=== PATIENT | male | born 1995 | race Caucasian/White ===

== ENCOUNTER 2022-05-21 14:40 | Inpatient (IN) | payer BC, SELFPAY ==
--- NOTE | ~2022-05-21 | CT_ITS ---
EXAMINATION: CT abdomen pelvis w con DATE: 05/21/2022 16:32 INDICATION: Abdominal pain and jaundice TECHNIQUE: Computed tomography (CT) of the abdomen and pelvis was performed with 100 mL Omnipaque-350 intravenous contrast. Automated exposure control and iterative reconstruction technique were employe d. The dose-length product was 1699.62 mGy-cm. COMPARISON: None FINDINGS: 8 mm calcite nodules lingula consistent with old granulomatous disease. Mild discoid atelectasis at t he right lung base. Heart size is normal. No pericardial or pleural effusion. Diffuse hepatic steatos is. Suggestion of a subtle nodular liver surface suspicious for cirrhosis. Splenomegaly measuring 17. 7 cm craniocaudal length consistent with portal venous hypertension. Also consistent with portal veno us hypertension are prominent portosystemic collaterals including a large recanalized umbilical vein which appears to drain via the right hypogastric vein and splenic collateral extending into a moderat e-sized fat-containing umbilical hernia containing multiple small collateral vessels. Small to modera te amount of ascites scattered throughout the abdomen and pelvis. No abscess or free intraperitoneal gas. Decompressed bladder, pancreas, bilateral adrenal glands and kidneys are normal. Bladder is norm al. Diffuse colonic wall thickening which could be related to hepatic colopathy or colitis either inf ectious, inflammatory or less likely ischemic in etiology. No bowel obstruction. Appendix is normal. Likely reactive mild periportal and portacaval lymphadenopathy. Bones are unremarkable. IMPRESSION: 1. Cirrhosis with small to moderate amount of ascites. 2. Stigmata of portal venous hypertension including splenomegaly and portosystemic collaterals as det maurice above. 3. Moderate-sized fat-containing umbilical hernia. 4. Diffuse colonic wall thickening which could be related to hepatic colopathy or colitis which could be infectious, inflammatory or less likely ischemic in etiology. 0.5. Likely reactive mild periporta l and portacaval lymphadenopathy. Reviewed, dictated and finalized at location [facility]. IMPRESSION: 1. Cirrhosis with small to moderate amount of ascites. 2. Stigmata of portal venous hypertension including splenomegaly and portosyste shaniqua collaterals as detailed above. 3. Moderate-sized fat-containing umbilical hernia. 4. Diffuse colonic wall thickening which could be related to hepatic colopathy or colitis which could be infectious, inflammatory or less likely ischemic in e tiology. 0.5. Likely reactive mild periportal and portacaval lymphadenopathy.
[2022-05-21 14:49] VITALS: BP 149/93; PULSE 108; RESP 20; TEMP 36.7; O2SAT 98
--- NOTE | 2022-05-21 15:23 | ED.ALCOHOL ---
HPI - Alcohol General Chief Complaint: Alcohol <Reyes Mitchell APRN - Last Filed: 05/22/22 09:45> Stated Complaint: alcoholic - stopped drinking 2 days ago, pints <Reyes Mitchell APRN - Last Filed: 05/22/22 09:45> Time Seen by Provider: 05/21/22 15:03 <Reyes Mitchell APRN - Last Filed: 05/22/22 09:45> History of Present Illness HPI narrative: 27-year-old male history of heavy alcohol abuse presents to the emergency room for evaluation of abdominal pain and requesting to be detox from alcohol. Patient admits to drinking 750mL from daily for several months. Also reports having like having yellowing of his skin that has been present for the last 2 months. Reports being seen at an outside emergency room 1 month ago for similar symptoms, was discharged home. Patient has a significant drinking history, and has experienced jaundice before. 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 States that he fell off the wagon several months ago and has been drinking heavily since. <Reyes Mitchell APRN - Last Filed: 05/22/22 09:45> Related Data Allergies/Adverse Reactions: Allergies Allergy/AdvReac Type Severity Reaction Status Date / Time No Known Allergies Allergy Verified 05/21/22 14:52 <Reyes Mitchell APRN - Last Filed: 05/22/22 09:45> Review of Systems Review of Systems: CONSTITUTIONAL: Denies fever, chills, or sweats. EYES: Denies visual changes, redness, or discharge. ENT: Denies rhinorrhea, congestion, sore throat, or otalgia. CARDIOVASCULAR: Denies chest pain, palpitations, or edema. RESPIRATORY: Denies cough or dyspnea. GASTROINTESTINAL: Reports abdominal pain, nausea, diarrhea GENITOURINARY: Denies dysuria or hematuria. SKIN: Reports jaundice, easily bruises MUSCULOSKELETAL: Denies back pain, joint pain, or myalgia. NEUROLOGIC: Denies headache, numbness, dizziness, or weakness. PSYCHIATRIC: Denies anxiety or depression. <Reyes Mitchell APRN - Last Filed: 05/22/22 09:45> Exam Narrative: GENERAL: ill-appearing, poorly-nourished, no physical limitations HEAD: Normocephalic, atraumatic. EYES: Conjunctivae jaundiced, PERRLA and EOMI. CHEST: Clear to auscultation. No respiratory distress. No wheezes rales or rhonchi. No tenderness. HEART: Regular rate and rhythm. No murmur heard. Normal peripheral pulses. ABDOMEN: Soft, generalized tenderness, nondistended, periumbilical hernia, normal active bowel sounds. BACK: No CVA tenderness EXTREMITIES: Normal range of motion. No edema. No clubbing or cyanosis SKIN: Warm, dry, no rash. Jaundiced NEURO: No focal deficits. Alert and oriented x3. MAEW. CN's II-XI intact bilaterally, normal gait PSYCH: Cooperative. Normal mood and affect. <Reyes Mitchell APRN - Last Filed: 05/22/22 09:45> Course Course Emergency Course: 1814: Patient has been accepted to the GI service at [facility]. GI service at [facility] recommends fluid replacement, managing withdrawal symptoms, replacing electrolyte imbalances, and daily 40mg prednisone or its equivalent. 1899: Report inpatient status given to Dr. Cade. <Reyes Mitchell APRN - Last Filed: 05/22/22 09:45> 181: Patient has been accepted to the GI service at [facility]. GI service at [facility] recommends fluid replacement, managing withdrawal symptoms, replacing electrolyte imbalances, and daily 40mg prednisone or its equivalent. 1899: Report inpatient status given to Dr. Cade. Care turned over to myself at shift change seen evaluate myself agree with initial H&P Contacted [facility] patient still awaiting bed do not believe any beds available today will admit at our facility Repeat labs drawn electrolytes replaced Discussed with Dr. Triana agrees with admission at this time <Andre Jarvis DO - Last Filed: 05/22/22 10:10> Vital Signs Vital signs: Vital Signs Temperature 98.0 F 05/21/22 14:49 Pulse Rate 108 H
[2022-05-21 15:24] VITALS: BP 151/89; PULSE 100; RESP 12; O2SAT 100
[2022-05-21 15:46] LABS: Basophils Percent Auto 0.4 % (0.2-1.2); Eosinophils Absolute Auto 0.1 K/mm3 (0-0.3); Eosinophils Percent Auto 0.7 % (0-4.4); Hematocrit 32.1 % (42.0-52.0); Hemoglobin 11.3 g/dL (14.0-18.0); Immature Granulocyte Absolute 0.04 K/mm3 (0.00-0.031); Immature Granulocyte Percent A 0.4 % (0-0.5); Lymphocytes Absolute Auto 0.94 K/mm3 (0.9-3.2); Lymphocytes Percent Auto 10.2 % (18.3-44.2); Mean Corpuscular HGB Conc 35.2 g/dl (32-36); Mean Corpuscular Volume 99.4 fl (80-100); Mean Platelet Volume 12.1 fl (7.4-10.4); Monocytes Absolute Auto 0.6 K/mm3 (0.1-0.6); Monocytes Percent Auto 6.1 % (2.6-8.5); Neutrophils Absolute Auto 7.5 K/mm3 (1.3-6.7); Neutrophils Percent Auto 82.2 % (45.5-73.1); Platelet Count Result 120 k/mm3 (150-375); Red Blood Count 3.23 M/mm3 (4.6-6.20); Red Cell Distribution Width 13.3 % (11.5-14.5); White Blood Count 9.2 K/mm3 (4.5-10.0)
[2022-05-21] MEDS: SODIUM CHLORIDE 0.9% IV 1,000 ML 999 ML IV CONT (15:47)
[2022-05-21] MEDS: ONDANSETRON INJ 4 MG/2 ML VIAL IV PUSH ×2 (15:47→19:36)
[2022-05-21 15:53] LABS: INR 2.7; Prothrombin Time 27.8 Seconds (11.1-14.7)
[2022-05-21 15:54] LABS: Add Urine Microscopic? YES; Appearance Urine Slightly Cloudy (Clear); Bilirubin Urine 3+ (Negative); Blood Urine Trace-lysed (Negative); Color Urine Brown (Yellow); Glucose Urine UA Trace mg/dL (Negative); Ketones Urine 1+ mg/dL (Negative); Leukocyte Esterase Ur 3+ LEU/UL (Negative); Nitrate Urine Negative (Negative); Protein Urine 2+ mg/dL (Negative); Specific Grav Ur 1.025 (1.001-1.035)
[2022-05-21 15:55] LABS: Partial Thromboplastin Time 46.7 SECONDS (22.3-36.8)
[2022-05-21 15:59] LABS: Bacteria Urine 2+ /hpf; Mucus Urine Heavy /lpf
[2022-05-21 16:00] LABS: Ethanol < 10 mg/dL (<10)
[2022-05-21 16:02] LABS: Lactic Acid Reflex 3.7 mmol/L (0.7-2.0)
[2022-05-21 16:03] LABS: Iron 132 ug/dL (49-181)
[2022-05-21 16:04] LABS: Cholesterol 118 mg/dL (0-200); HDL Direct 8 mg/dL; Triglycerides 386 mg/dL (<150)
[2022-05-21 16:07] LABS: Alanine Aminotransferase 69 U/L (6-50); Albumin Level 3.1 g/dL (3.5-5.1); Alkaline Phosphatase 404 U/L (38-126); Anion Gap 14 mmol/L (8-16); Aspartate Amino Transferase 482 U/L (17-59); Bilirubin,Total 17.7 mg/dL (0.2-1.3); Blood Urea Nitrogen 5 mg/dL (9-20); Calcium 7.4 mg/dL (8.4-10.2); Carbon Dioxide 27 mmol/L (22-30); Chloride 95 mmol/L (98-107); Estimated CRCL calculation 241 ml/min; Estimated Glomerular Filt Rate > 60; Glucose 89 mg/dL (65-110); Potassium 2.5 mmol/L (3.4-5.0); Sodium 136 mmol/L (137-145)
[2022-05-21 16:09] LABS: Lactate Dehydrogenase 466 U/L (120-246)
[2022-05-21 16:12] LABS: Percent Iron Saturation 78 % (20-50)
[2022-05-21 16:14] LABS: Hemoglobin A1C 4.2 % (<5.7)
[2022-05-21 16:15] LABS: LDL Cholesterol Direct 56 mg/dL
[2022-05-21 16:37] LABS: Hepatitis B Surface Antigen Negative (Negative)
[2022-05-21 16:43] LABS: HAV RESULT Negative (Negative); Hepatitis B Core IgM Result Negative (Negative)
[2022-05-21 16:55] LABS: Hepatitis C Virus Antibody Negative (Negative)
[2022-05-21] MEDS: POTASSIUM CHLORIDE INJ 40 MEQ in SODIUM CHLORIDE 0.9% IV 500 ML 130 MEQ IVPB ×2 (16:55→21:18)
[2022-05-21] MEDS: SODIUM CHLORIDE 0.9% IV 500 ML 125 ML IV CONT (16:55)
[2022-05-21 17:07] LABS: Magnesium 1.4 mg/dL (1.6-2.3)
[2022-05-21 18:28] LABS: Ammonia 156 umol/L (9-30)
[2022-05-21 18:34] LABS: SARS-CoV-2 RNA PCR Negative
--- NOTE | 2022-05-21 18:35 | PC.NURSE ---
Spoke w/ Shaniqua from [facility] transfer center. Updated on pt condition. Shaniqua reports that the pt will not have a bed for days
[2022-05-21 18:40] LABS: Reflex Lactic Acid Yes or No Add Lactic
[2022-05-21 19:20] LABS: Lactic Acid 3.2 mmol/L (0.7-2.0)
[2022-05-21] MEDS: LACTULOSE 20 GM/30 ML UDC PO (19:36)
[2022-05-21] MEDS: PANTOPRAZOLE SODIUM IV 40 MG VIAL IV PUSH (19:36)
[2022-05-21 19:47] VITALS: BP 147/88; PULSE 100; RESP 18; O2SAT 98
[2022-05-21 23:09] VITALS: BP 160/96; PULSE 87; RESP 18; O2SAT 97
[2022-05-22] VITALS (14 sets, daily range): BP systolic 147–158; BP diastolic 89–100; PULSE 84–122; RESP 14–22; TEMP 36.4–37; O2SAT 95–99; BMI 34.2; BMI 37.3
[2022-05-22 02:07] LABS: Amphetamine Screen Urine Negative (Negative); Barbiturate Screen Urine Negative (Negative); Benzodiazepines Screen Urine Negative (Negative); Cannabinoid Screen Urine Negative (Negative); Cocaine Screen Urine Negative (Negative); Methadone Screen Urine Negative (Negative); Opiate Screen Urine Negative (Negative); Phencyclidine Screen Urine Negative (Negative)
--- NOTE | 2022-05-22 07:15 | PC.NURSE ---
Assumed care of Pt. at this time. Report from JUDY Dorsey
--- NOTE | 2022-05-22 07:42 | PC.NURSE ---
previous RN called [facility] this am. pt. does not have a bed. will follow up.
[2022-05-22 09:23] LABS: Alanine Aminotransferase 66 U/L (6-50); Albumin Level 2.5 g/dL (3.5-5.1); Alkaline Phosphatase 342 U/L (38-126); Anion Gap 8 mmol/L (8-16); Aspartate Amino Transferase 378 U/L (17-59); Bilirubin,Total 15.2 mg/dL (0.2-1.3); Blood Urea Nitrogen 6 mg/dL (9-20); Calcium 6.9 mg/dL (8.4-10.2); Carbon Dioxide 27 mmol/L (22-30); Chloride 100 mmol/L (98-107); Estimated CRCL calculation 205 ml/min; Estimated Glomerular Filt Rate > 60; Glucose 112 mg/dL (65-110); Magnesium 1.5 mg/dL (1.6-2.3); Potassium 2.7 mmol/L (3.4-5.0); Sodium 135 mmol/L (137-145)
[2022-05-22] MEDS: POTASSIUM CHLORIDE 20 MEQ PACKET (FOR LIQUID) 40 MEQ PO (09:49)
[2022-05-22] MEDS: MAGNESIUM SULF 2 GM/WATER 50ML 2 GM/50 ML BAG IVPB (09:50)
[2022-05-22] MEDS: THIAMINE HCL 200 MG/2 ML VIAL 100 MG IV PUSH (09:50)
--- NOTE | 2022-05-22 12:00 | ADMGEN ---
This patient, Jonh Cronin, was admitted to IMU Room 231-01. Patient/family oriented to hospital policies and general routines including ID bracelet, bed and alarms, visiting hours, pain management, procedures, bathroom and other care routines, personal items, smoking policy, room service/diet, and visiting hours. Information on how to activate the Rapid Response Team has been discussed. Patient/Family are encouraged to report perceived risks to care and to ask questions if they do not understand what they are told or what they should do.
--- NOTE | 2022-05-22 12:38 | PM.IMHP ---
H&P: HPI History of Present Illness Date/Time: 05/22/22 12:38 Chief Complaint: This is the 27-year-old male patient who has a history of heavy alcohol abuse. The patient had been sober for several months and stated his shoeblack told him that he was doing well so the patient fell off the wagon and has been drinking at least 750 mL of alcohol or beer daily for the last several months. The patient came to the emergency room today because he noticed his skin has been jaundiced for the last 2 months he also had abdominal pain today. The patient stated that he went to an outside emergency room 1 month ago for similar symptoms and was discharged to home. The patient has not seen his shoeblack in several months. He sees a shoeblack at [facility]. The ER provider noted the following ?Patient has been accepted to the GI service at [facility].? GI service at [facility] recommends fluid replacement, managing withdrawal symptoms, replacing electrolyte imbalances, and daily 40mg prednisone or its equivalent. His blood pressure was elevated yesterday 149/93. And tachycardia with heart rate of 108. Patient's current meld scores a [address] scan shows cirrhosis mild to moderate amount of ascites and portal hypertension. Patient is to be transferred to [facility] due to D compensating liver failure GI services at [facility] will accept him however there would be a long wait due to the Valium at their facility. The patient tells me that he has been spitting up some blood and that he has had some dark stools as well. His H&H is 11.3 and 32.1. Platelet count 120. Potassium this morning was still 2.7. Magnesium was 1.5. Total bilirubin 15.2. AST is 378. ALT 66. Alkaline phosphatase 342. Ammonia was 156. Urine was positive for UTI. Patient was negative for COVID and is tox screen was negative. The patient was given IV fluids, p.o. potassium, IV potassium, Decadron, Zofran, magnesium, and thiamin. Patient is being admitted to observation status on the date of service of 05/22/2022 awaiting a bed for [facility]. Review of Systems Review of Systems: See HPI All systems reviewed & are unremarkable except as noted in HPI and below Constitutional: Constitutional: Reports as per HPI and Reports no additional constitutional complaints Eyes: Eyes: Reports as per HPI and Reports no additional eye complaints ENT: Reports system reviewed and no additional complaints, except as documented and Reports Normal hearing present Cardiovascular: Cardiovascular: Reports no additional cardiovascular complaints Respiratory: Respiratory: Reports no additional respiratory complaints and Reports no additional respiratory complaints Gastrointestinal: Gastrointestinal: Reports as per HPI and Reports no additional gastrointestinal complaints Musculoskeletal: Musculoskeletal: Reports no additional musculoskeletal complaints Integumentary/Breasts: Skin/Breast: Reports system reviewed and no additional complaints, except as docu and Reports as per HPI Neurologic: Reports system reviewed and no additional complaints, except as documented, Reports as per HPI and Reports Normal hearing present Psychiatric: Psychiatric: Reports no additional psychiatric complaints and Reports as per HPI Endocrine: Endocrine: Reports no additional endocrine complaints Hematologic/Lymphatic: Hematologic/Lymphatic: Reports no additional hematologic/lymphatic complaints Allergic/Immunologic: Allergic/Immunologic: Reports no additional allergic/immunologic complaints [facility] Past Medical History Medical History Alcohol abuse Surgical History Surgical History (Updated 05/22/22 @ 12:51 by Mami Mueller NP) History of surgery on upper extremity Family History Family History (Updated 05/22/22 @ 12:52 by Mami Mueller NP) Mother Alcoholism Sibling Anorexia Sibling Mental disorder Social History Social History (Updated 05/22/22 @ 12:54 by Mami Mueller NP) Social History: The patient live
[2022-05-22] MEDS: SODIUM CHLORIDE 0.9% IV 1,000 ML 125 ML IV CONT ×2 (12:47→20:46)
[2022-05-22 14:21] LABS: Basophils Percent Auto 0.1 % (0.2-1.2); Hematocrit 30.4 % (42.0-52.0); Hemoglobin 10.6 g/dL (14.0-18.0); Immature Granulocyte Absolute 0.06 K/mm3 (0.00-0.031); Immature Granulocyte Percent A 0.6 % (0-0.5); Immature Platelet Fraction Pct 6.2 % (0.9-11.2); Lymphocytes Absolute Auto 0.64 K/mm3 (0.9-3.2); Mean Corpuscular HGB Conc 34.9 g/dl (32-36); Mean Corpuscular Hemoglobin 35.9 pg (26-34); Mean Corpuscular Volume 103.1 fl (80-100); Mean Platelet Volume 11.1 fl (7.4-10.4); Monocytes Absolute Auto 0.4 K/mm3 (0.1-0.6); Monocytes Percent Auto 3.8 % (2.6-8.5); Neutrophils Absolute Auto 9.6 K/mm3 (1.3-6.7); Neutrophils Percent Auto 89.5 % (45.5-73.1); Platelet Count Result 88 k/mm3 (150-375); Red Blood Count 2.95 M/mm3 (4.6-6.20); Red Cell Distribution Width 13.8 % (11.5-14.5); White Blood Count 10.7 K/mm3 (4.5-10.0)
[2022-05-22 14:32] LABS: Ammonia 82 umol/L (9-30)
[2022-05-22 14:37] LABS: INR 3.1; Prothrombin Time 30.6 Seconds (11.1-14.7)
[2022-05-22 14:38] LABS: Alanine Aminotransferase 65 U/L (6-50); Albumin Level 2.8 g/dL (3.5-5.1); Alkaline Phosphatase 357 U/L (38-126); Anion Gap 12 mmol/L (8-16); Aspartate Amino Transferase 378 U/L (17-59); Bilirubin,Total 17.4 mg/dL (0.2-1.3); Blood Urea Nitrogen 6 mg/dL (9-20); Calcium 7.2 mg/dL (8.4-10.2); Carbon Dioxide 27 mmol/L (22-30); Chloride 100 mmol/L (98-107); Estimated CRCL calculation 217 ml/min; Estimated Glomerular Filt Rate > 60; Glucose 138 mg/dL (65-110); Phosphorus 1.6 mg/dL (2.5-4.5); Potassium 2.7 mmol/L (3.4-5.0); Sodium 139 mmol/L (137-145)
[2022-05-22 14:39] LABS: Platelet Estimate Decreased (Adequate)
[2022-05-22 14:40] LABS: Ovalocytes 1+ (NORMAL); Schistocytes None Seen (NORMAL); Target Cells 1+ (NORMAL)
[2022-05-22] MEDS: POTASSIUM CHLORIDE INJ 40 MEQ in SODIUM CHLORIDE 0.9% IV 500 ML 130 MEQ IVPB (16:04)
[2022-05-22] MEDS: POTASSIUM CHLORIDE 20 MEQ TABLET.ER 40 MEQ PO (16:16)
[2022-05-22] MEDS: chlordiazePOXIDE (*CRX) 25 MG CAPSULE 50 MG PO ×2 (17:38→23:43)
[2022-05-22 17:59] LABS: Glucose Point of Care 121 mg/dl (65-105)
[2022-05-22 19:41] LABS: Hematocrit 31.1 % (42.0-52.0); Hemoglobin 10.6 g/dL (14.0-18.0)
[2022-05-22] MEDS: PANTOPRAZOLE SODIUM IV 40 MG VIAL IV PUSH (20:43)
[2022-05-22 23:34] LABS: Glucose Point of Care 170 mg/dl (65-105)
[2022-05-23] VITALS (16 sets, daily range): BP systolic 133–163; BP diastolic 81–95; PULSE 71–100; RESP 17–97; TEMP 36–36.8; O2SAT 20–100; BMI 37.2
[2022-05-23 05:09] LABS: Alanine Aminotransferase 59 U/L (6-50); Albumin Level 2.4 g/dL (3.5-5.1); Alkaline Phosphatase 273 U/L (38-126); Anion Gap 6 mmol/L (8-16); Aspartate Amino Transferase 271 U/L (17-59); Bilirubin,Total 15.4 mg/dL (0.2-1.3); Blood Urea Nitrogen 8 mg/dL (9-20); Calcium 6.7 mg/dL (8.4-10.2); Carbon Dioxide 23 mmol/L (22-30); Chloride 106 mmol/L (98-107); Estimated CRCL calculation 216 ml/min; Estimated Glomerular Filt Rate > 60; Glucose 160 mg/dL (65-110); Potassium 3.6 mmol/L (3.4-5.0); Sodium 135 mmol/L (137-145)
--- NOTE | 2022-05-23 05:31 | PC.NURSE ---
I HAVE MONITORED THE MEDICATION DISPENSING AND THE CHARTING FOR THIS PATIENT AND I AGREE WITH EVERYTHING THAT DELVIN MANNING RN LICENCE PENDING HAS CHARTED.
[2022-05-23] MEDS: chlordiazePOXIDE (*CRX) 25 MG CAPSULE 50 MG PO ×4 (05:33→23:54)
[2022-05-23] MEDS: SODIUM CHLORIDE 0.9% IV 1,000 ML 125 ML IV CONT ×2 (05:33→13:16)
[2022-05-23 07:21] LABS: Hematocrit 29.4 % (42.0-52.0); Hemoglobin 10.1 g/dL (14.0-18.0); Immature Platelet Fraction Pct 5.9 % (0.9-11.2); Mean Corpuscular HGB Conc 34.4 g/dl (32-36); Mean Corpuscular Hemoglobin 35.8 pg (26-34); Mean Corpuscular Volume 104.3 fl (80-100); Platelet Count Result 82 k/mm3 (150-375); Red Blood Count 2.82 M/mm3 (4.6-6.20); Red Cell Distribution Width 14.1 % (11.5-14.5); White Blood Count 8.3 K/mm3 (4.5-10.0)
--- NOTE | 2022-05-23 07:33 | PM.IMPN ---
Progress Note: A&P Assessment and Plan (1) Alcohol abuse: Code(s): F10.10 - Alcohol abuse, uncomplicated Status: Acute Assessment and Plan: Continue CIWA scores with Librium as needed (2) Acute liver failure: Code(s): K72.00 - Acute and subacute hepatic failure without coma Status: Acute Assessment and Plan: Awaiting transfer for hepatology at [facility] (3) Hypomagnesemia: Code(s): E83.42 - Hypomagnesemia Status: Acute Assessment and Plan: Stable (4) Acute UTI: Code(s): N39.0 - Urinary tract infection, site not specified Status: Acute Assessment and Plan: Continue Rocephin, follow up urine culture (5) Acute hypokalemia: Code(s): E87.6 - Hypokalemia Status: Acute Assessment and Plan: Resolved (6) Thrombocytopenia: Code(s): D69.6 - Thrombocytopenia, unspecified Status: Acute Assessment and Plan: Stable Plan DVT prophylaxis with SCDs GI prophylaxis with PPI Code status full code Subjective Date/time seen: 05/23/22 07:33 Interval history: Patient is eager to go home. No overnight events noted. No chest pain or shortness of breath. No nausea, vomiting or diarrhea. No fevers or chills. Review of Systems Review of Systems: 12 point review of systems was assessed and was negative except as noted in the HPI Exam Narrative: General: No acute distress, alert and oriented per baseline HEENT: Atraumatic, normocephalic, mucous membranes moist, bilateral icteric sclera CV: Regular rate and rhythm, S1, S2 Lungs: Clear to auscultation bilaterally, no rales or crackles noted, no wheezes, good air entry Abdomen: Soft, nontender, distended Extremities: Normal to inspection, significant edema bilaterally Skin: No rashes noted, no lesions or wounds seen Psych: Euthymic, normal affect Objective Data Vital Signs Vital Signs: Vital Signs - 24 hr 05/22/22 09:28 05/22/22 10:27 05/22/22 11:54 Temperature 98.6 F 98.4 F Pulse Rate 86 88 96 Respiratory Rate 14 19 22 H Blood Pressure 152/95 H 155/89 H 147/97 H Pulse Oximetry 96 97 99 Oxygen Delivery 05/22/22 12:00 05/22/22 12:00 05/22/22 14:00 Temperature Pulse Rate 102 H 92 Respiratory Rate Blood Pressure Pulse Oximetry Oxygen Delivery Room Air 05/22/22 16:24 05/22/22 16:00 05/22/22 16:00 Temperature 97.6 F Pulse Rate 95 122 H Respiratory Rate 20 Blood Pressure 149/95 H Pulse Oximetry 98 Oxygen Delivery Room Air 05/22/22 18:00 05/22/22 20:00 05/22/22 20:00 Temperature 97.9 F Pulse Rate 100 95 93 Respiratory Rate 20 Blood Pressure 151/93 H Pulse Oximetry 96 Oxygen Delivery 05/22/22 22:00 05/22/22 23:31 05/23/22 00:00 Temperature 98.0 F Pulse Rate 84 113 H 100 Respiratory Rate 20 Blood Pressure 153/94 H Pulse Oximetry 99 Oxygen Delivery 05/23/22 02:00 05/23/22 03:50 05/23/22 04:00 Temperature Pulse Rate 78 77 Respiratory Rate Blood Pressure Pulse Oximetry Oxygen Delivery Room Air 05/23/22 04:00 05/23/22 05:21 Temperature 98.0 F Pulse Rate 90 75 Respiratory Rate 18 Blood Pressure 133/81 Pulse Oximetry 98 Oxygen Delivery Intake/Output Intake/Output: Intake & Output 05/20/22 05/21/22 05/22/22 05/23/22 23:59 23:59 23:59 23:59 Intake Total 2019 2199 1800 Output Total Balance 2019 2198 1800 Meds/Results Medications: Active Medications Generic Name Dose Route Start Last Admin Trade Name Freq PRN Reason Stop Dose Admin Chlordiazepoxide HCl 50 mg 05/22/22 18:00 05/23/22 05:33 Chlordiazepoxide (*Crx) 25 Mg Capsule PO 50 mg Q6HR IQRA Administration Folic Acid 1 mg 05/23/22 09:00 Folic Acid 1 Mg/0.2 Ml Inj IV PUSH QAM IQRA Ceftriaxone Sodium/Dextrose 1 gm in 50 mls @ 100 mls/hr 05/22/22 21:00 05/22/22 20:43 Rocephin 1 Gm/D5w 50 Ml IVPB 100 mls/hr Q24H IQRA Administration S
[2022-05-23 07:59] LABS: Platelet Estimate Decreased (Adequate)
[2022-05-23 08:00] LABS: Band Neutrophils Percent 6 % (0-6); Lymphocytes Absolute Manual 0.41 K/mm3 (1.1-4.5); Lymphocytes Percent Manual 5 % (18-44); Monocytes Absolute Manual 0.08 K/mm3 (0.1-0.90); Monocytes Percent Manual 1 % (3-9); Neutrophils Percent Manual 88 % (46-73); Schistocytes None Seen (NORMAL); Total Cells Counted 100
[2022-05-23] MEDS: POTASSIUM CHLORIDE 20 MEQ TABLET.ER 40 MEQ PO ×2 (08:25→16:45)
[2022-05-23] MEDS: FOLIC ACID 1 MG/0.2 ML INJ IV PUSH (08:25)
[2022-05-23] MEDS: predniSONE 20 MG TABLET 40 MG PO (08:25)
[2022-05-23] MEDS: PANTOPRAZOLE SODIUM IV 40 MG VIAL IV PUSH ×2 (08:25→21:44)
[2022-05-23] MEDS: THIAMINE HCL 200 MG/2 ML VIAL 100 MG IV PUSH (08:25)
[2022-05-23 11:50] LABS: Glucose Point of Care 215 mg/dl (65-105)
--- NOTE | 2022-05-23 14:11 | PC.NURSE ---
On 05/23/22, the student, [Mily Evans], provided care and completed [facility] documentation on this patient. I have reviewed the student's documentation and agree with the findings.
[2022-05-23 18:03] LABS: Glucose Point of Care 167 mg/dl (65-105)
[2022-05-23 23:03] LABS: Glucose Point of Care 212 mg/dl (65-105)
[2022-05-24] VITALS (7 sets, daily range): BP systolic 144–154; BP diastolic 72–94; PULSE 62–105; RESP 16–20; TEMP 36.1–36.6; O2SAT 91–99
--- NOTE | 2022-05-24 00:10 | PC.NURSE ---
[facility] placement called at 23:25 for an update. No bed placement available.
--- NOTE | 2022-05-24 05:49 | PC.NURSE ---
I HAVE MONITORED THE MEDICATION DISPENSING AND CHARTING DONE BY DELVIN MANNING RN LICENSE PENDING AND I AGREE WITH EVERYTHING.
[2022-05-24] MEDS: chlordiazePOXIDE (*CRX) 25 MG CAPSULE 50 MG PO (05:54)
[2022-05-24] MEDS: THIAMINE HCL 200 MG/2 ML VIAL 100 MG IV PUSH (08:46)
[2022-05-24] MEDS: FOLIC ACID 1 MG/0.2 ML INJ IV PUSH (08:46)
[2022-05-24] MEDS: PANTOPRAZOLE SODIUM IV 40 MG VIAL IV PUSH (08:46)
[2022-05-24] MEDS: ONDANSETRON INJ 4 MG/2 ML VIAL IV PUSH (08:47)
[2022-05-24 11:31] LABS: Basophils Absolute Auto 0.1 K/mm3 (0.0-0.1); Basophils Percent Auto 0.3 % (0.2-1.2); Eosinophils Percent Auto 0.1 % (0-4.4); Hematocrit 35.5 % (42.0-52.0); Immature Granulocyte Absolute 0.54 K/mm3 (0.00-0.031); Immature Granulocyte Percent A 2.5 % (0-0.5); Lymphocytes Absolute Auto 0.96 K/mm3 (0.9-3.2); Lymphocytes Percent Auto 4.5 % (18.3-44.2); Mean Corpuscular HGB Conc 33.8 g/dl (32-36); Mean Corpuscular Hemoglobin 35.5 pg (26-34); Mean Platelet Volume 11.2 fl (7.4-10.4); Monocytes Absolute Auto 1.5 K/mm3 (0.1-0.6); Monocytes Percent Auto 6.7 % (2.6-8.5); Neutrophils Absolute Auto 18.5 K/mm3 (1.3-6.7); Neutrophils Percent Auto 85.9 % (45.5-73.1); Platelet Count Result 138 k/mm3 (150-375); Red Blood Count 3.38 M/mm3 (4.6-6.20); White Blood Count 21.5 K/mm3 (4.5-10.0)
[2022-05-24 11:41] LABS: Ammonia 117 umol/L (9-30)
[2022-05-24 11:45] LABS: Alanine Aminotransferase 73 U/L (6-50); Albumin Level 2.9 g/dL (3.5-5.1); Alkaline Phosphatase 347 U/L (38-126); Anion Gap 9 mmol/L (8-16); Aspartate Amino Transferase 243 U/L (17-59); Bilirubin,Total 20.4 mg/dL (0.2-1.3); Blood Urea Nitrogen 10 mg/dL (9-20); Calcium 7.8 mg/dL (8.4-10.2); Carbon Dioxide 20 mmol/L (22-30); Chloride 109 mmol/L (98-107); Estimated CRCL calculation 216 ml/min; Estimated Glomerular Filt Rate > 60; Glucose 158 mg/dL (65-110); Potassium 2.8 mmol/L (3.4-5.0); Sodium 138 mmol/L (137-145)
--- NOTE | 2022-05-24 12:53 | PM.TDS ---
Transfer Discharge Sum: Prov Provider Date of admission: 05/23/22 12:07 Primary care physician: UNKNOWN,DOCTOR Admitting clinician: Leah Triana DO Consults: 05/22/22 12:47 Care Coordination Consult Routine Comment: Reason for Consult:: Other 05/22/22 12:48 Consult to Dietitian Routine Reason for Consult:: Malnutrition from alcohol is DS: Admitting Diagnosis Discharge Date May 24 2022 Admitting Diagnosis Jaundice DS: Discharge Diagnosis Discharge Diagnosis (1) Alcohol abuse: Code(s): F10.10 - Alcohol abuse, uncomplicated Status: Acute Assessment and Plan: Continue CIWA scores with Librium as needed (2) Acute liver failure: Code(s): K72.00 - Acute and subacute hepatic failure without coma Status: Acute Assessment and Plan: Awaiting transfer for hepatology at [facility] (3) Hypomagnesemia: Code(s): E83.42 - Hypomagnesemia Status: Acute Assessment and Plan: Stable (4) Acute UTI: Code(s): N39.0 - Urinary tract infection, site not specified Status: Acute Assessment and Plan: Continue Rocephin, follow up urine culture (5) Acute hypokalemia: Code(s): E87.6 - Hypokalemia Status: Acute Assessment and Plan: Resolved (6) Thrombocytopenia: Code(s): D69.6 - Thrombocytopenia, unspecified Status: Acute Assessment and Plan: Stable Plan DVT prophylaxis with SCDs GI prophylaxis with PPI Code status full code Transfer Discharge Sum: Med Medications Active and Home Medications: Home Medications Unable to Obtain Home Medications 05/24/22 [History Confirmed 05/24/22] Active Medications Folic Acid (Folic Acid 1 Mg/0.2 Ml Inj) 1 mg IV PUSH QAM IQRA Last Admin: 05/24/22 08:46 Dose: 1 mg Lorazepam (Lorazepam Inj (*Crx) 2 Mg/Ml Vial) 2 mg IV PUSH Q4H PRN PRN Reason: Withdrawal Ondansetron HCl (Ondansetron Inj 4 Mg/2 Ml Vial) 4 mg IV PUSH Q6H PRN PRN Reason: Nausea And Vomiting Last Admin: 05/24/22 08:47 Dose: 4 mg Pantoprazole Sodium (Pantoprazole Sodium Iv 40 Mg Vial) 40 mg IV PUSH Q12HR IQRA Last Admin: 05/24/22 08:46 Dose: 40 mg Potassium Chloride (Potassium Chloride 20 Meq Tablet.Er) 40 meq PO BIDWM [facility] Last Admin: 05/24/22 12:39 Dose: Not Given Potassium Chloride (Potassium Chloride 20 Meq Tablet) 40 meq PO ONCE ONE Stop: 05/24/22 12:53 Prednisone (Prednisone 20 Mg Tablet) 40 mg PO DAILY@0800 [facility] Last Admin: 05/24/22 12:39 Dose: Not Given Thiamine HCl (Thiamine Hcl 200 Mg/2 Ml Vial) 100 mg IV PUSH DAILY [facility] Last Admin: 05/24/22 08:46 Dose: 100 mg Transfer Discharge Sum: Hosp Hospital Course Hospital course: Jonh Cronin is a 27 year old male who has a history of heavy alcohol abuse.? The patient had been sober for several months and stated his shredder tender peat told him that he was doing well so the patient fell off the wagon and has been drinking at least 750 mL of alcohol or beer daily for the last several months.? The patient came to the emergency room today because he noticed his skin has been jaundiced for the last 2 months he also had abdominal pain today.? The patient stated that he went to an outside emergency room 1 month ago for similar symptoms and was discharged to home.? The patient has not seen his shredder tender peat in several months.? He sees a shredder tender peat at [facility].? The ER provider noted the following ?Patient has been accepted to the GI service at [facility].? GI service at [facility] recommends fluid replacement, managing withdrawal symptoms, replacing electrolyte imbalances, and daily 40mg prednisone or its equivalent. His blood pressure was elevated yesterday 149/93.? And tachycardia with heart rate of 108.? Patient's current meld scores a [address] scan shows cirrhosis mild to moderate amount of ascites and portal hypertension.? Patient is to be transferred to [facility] due to D compensating liver failure GI services at [facility]
[2022-05-24 12:56] LABS: Glucose Point of Care 161 mg/dl (65-105)
[2022-05-24] MEDS: POTASSIUM CHLORIDE 20 MEQ TABLET 40 MEQ PO (13:20)
[2022-05-24] MEDS: predniSONE 20 MG TABLET 40 MG PO (13:23)
== END 2022-05-24 13:45 | disposition short-term general hospital (02) | DRG 279 ==
LOC: ANHED 05-22 10:10 → ANHIMU 05-22 11:35
PROVIDERS: Emergency Medicine; Nurse Practitioner; Admitting Provider Student in an Organized Health Care Education/Training Program; Emergency Provider Nurse Practitioner Family; Visit Provider Student in an Organized Health Care Education/Training Program
DX: K72.00 Acute and subacute hepatic failure without coma (principal); K70.31 Alcoholic cirrhosis of liver with ascites; D69.6 Thrombocytopenia, unspecified; F10.20 Alcohol dependence, uncomplicated; K76.6 Portal hypertension; E83.42 Hypomagnesemia; N39.0 Urinary tract infection, site not specified; E87.6 Hypokalemia; Z20.822 Contact with and (suspected) exposure to COVID-19
CPT/HCPCS: 36415; 74177; 80053; 80061; 80074; 80307; 81001; 82140; 82728; 82948; 83036; 83540; 83550; 83605; 83615; 83735; 84100; 85014; 85018; 85025; 85055; 85610; 85730; 86850; 86900; 86901; 87040; 87086; 96361; 96365; 96366; 96367; 96368; 96375; 96376; 99285; A9270; C9113; C9803; G0378; G0379; J0696; J1100; J2354; J2405; J3411; J3475; J3480; J7030; J7040; J7512; Q9967; U0003; U0005